=== PATIENT | male | born 1960 | race African-American/Black ===

== ENCOUNTER 2018-10-13 13:10 | Emergency (ER) | payer OTHER ==
[~2018-10-13] VITALS: Ht 195.6 cm; Wt 106.6 kg
--- NOTE | 2018-10-13 13:10 | NUR ---
BIB SELF, FOR MEDICAL CLEARANCE. PATIENT IS REQUIRED TO BE MEDICALLY CLEAR BEFORE BEING ALLOWED TO A GROUP HOME. AWAITING MD SPAIN
--- NOTE | 2018-10-13 14:35 | NUR ---
SEEN BY BENNY HONEYCUTT
--- NOTE | 2018-10-13 16:21 | NUR ---
Patient discharged to home in stable condition. Written and verbal after care instructions given. Patient verbalizes understanding of instruction.
[2018-10-13 16:25] VITALS: BP 132/78
== END 2018-10-13 16:26 | disposition home or self-care (01) ==
LOC: ER 13:14
DX: B85.1 Pediculosis due to Pediculus humanus corporis (principal); B85.0 Pediculosis due to Pediculus humanus capitis
CPT/HCPCS: 71046; A4606; Z7610